=== PATIENT | male | born 1990 | race Caucasian/White ===

== ENCOUNTER 2021-02-26 22:41 | Emergency (ER) | payer OTHER, SELFPAY ==
[2021-02-26 22:47] VITALS: BP 155/80; PULSE 98; RESP 18; TEMP 36.7; O2SAT 97; BMI 41.5
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
--- NOTE | 2021-02-26 23:34 | PC.NURSE ---
THE OTHER PT WHO THE EMT WAS TRANSPORTING AGREED TO HAVE LABS DRAWN ON HIM. PT AWARE AND DISCUSSED OPTION WITH [employer] MANAGER JACKLYN TO NOT START WITH THE RETROVIRUS TREATMENT AT THIS TIME AND HE WILL F/U WITH [facility] FOR FURTHER TREATMENT.
[2021-02-27 00:41] LABS: HIV AB/AG Nonreactive (Nonreactive)
[2021-02-28 08:14] LABS: HBsAGNum1 0.15 S/CO (0.00-0.99); Hepatitis B Surface Antigen Negative (Negative); ~Hepatitis C Antibody Nonreactive (Nonreactive)
[2021-02-28 08:53] LABS: HBS Num1 0.39 mIU/mL (0-7.99); HBc Num1 0.07 S/CO (0.00-0.79); HIV Num 1 0.06 S/CO (0.00-0.99); Hepatitis B Core Antibody Nonreactive (Nonreactive); ~Hepatitis B Surface Antibody NONREACTIVE (Nonreactive)
[2021-03-02 08:24] LABS: Hepatitis A Antibody IgM 0.19 Index (0-0.79); ~Hepatitis A Antibody IgM Nonreactive (Nonreactive)
== END 2021-02-26 23:36 | disposition home or self-care (01) ==
PROVIDERS: Nurse Practitioner Family; Emergency Provider Emergency Medicine Emergency Medical Services; PCP Family Medicine
DX: Z04.2 Encounter for examination and observation following work accident (principal); Z77.21 Contact with and (suspected) exposure to potentially hazardous body fluids
CPT/HCPCS: 36415; 86704; 86706; 86709; 86803; 87340; 87389; 99284; 99285